=== PATIENT | male | born 1965 | race African-American/Black ===

== ENCOUNTER 2017-11-09 12:33 | Inpatient (IN) | payer OTHER ==
[2017-11-09 17:24] VITALS: BMI 20.4
--- NOTE | 2017-11-09 19:48 | HP ---
CIWA Score - CIWA Score Nausea/Vomitin-No Nausea/No Vomiting Muscle Tremors: 4-Moderate,w/Arms Extend Anxiety: 4-Mod. Anxious/Guarded Agitation: 1-Slight > Activity Paroxysmal Sweats: 3 Orientation: 0-Oriented Tacttile Disturbances: 0-None Auditory Disturbances: 0-None Visual Disturbances: 0-None Headache: 2-Mild CIWA-Ar Total Score: 14 Admission ROS S - HPI Chief Complaint: Alcohol withdrawal symtpoms, " I was clean for a while and I really messed up, I want to go to detox." Allergies/Adverse Reactions: Allergies Allergy/AdvReac Type Severity Reaction Status Date / Time No Known Allergies Allergy Verified 11/09/17 18:19 History of Present Illness: 52 yo male with hx of alcohol dependence, crack / cocaine and nicotine dependence is here seeking detox. PMHX: chronic foot fungus, insomnia. Reports recent onset of blackout related to his drinking, last episode was about a month ago, as per patient his is an indication for him that his drinking has worsen. Denies any seizures Longest period of sobriety 5 years. Last detox [facility] at [facility], April 27, 2017. Denies suicidal / homicidal ideation or suicide attempts. Exam Limitations: Physical Impairment - Ebola screening Have you traveled outside of the country in the last 21 days: No Have you had contact with anyone from an Ebola affected area: No Have you been sick,other than usual withdrawal symptoms: No - Review of Systems Constitutional: Chills, Loss of Appetite, Changes in sleep, Weakness, Unintentional Wgt. Loss (lost 8 lbs in the past three weeks) EENT: reports: No Symptoms Reported Respiratory: reports: No Symptoms reported Cardiac: reports: No Symptoms Reported GI: reports: Nausea, Poor Appetite, Poor Fluid Intake : reports: No Symptoms Reported Musculoskeletal: reports: Other (b/t pain on both feet attributes to chronic fungus infection) Integumentary: reports: No Symptoms Reported Neuro: reports: Headache Endocrine: reports: No Symptoms Reported Hematology: reports: No Symptoms Reported Psychiatric: reports: Orientated x3, Depressed Other Systems: Reviewed and Negative Patient History - Patient Medical History Hx Anemia: No Hx Asthma: No Hx Chronic Obstructive Pulmonary Disease (COPD): No Hx Cancer: No Hx Cardiac Disorders: No Hx Congestive Heart Failure: No Hx Hypertension: No Hx Hypercholesterolemia: No Hx Pacemaker: No HX Cerebrovascular Accident: No Hx Seizures: No Hx Dementia: No Hx Diabetes: No Hx Gastrointestinal Disorders: No Hx Liver Disease: No Hx Genitourinary Disorders: No Hx Sexually Transmitted Disorders: No Hx Renal Disease (ESRD): No Hx Thyroid Disease: No Hx Human Immunodeficiency Virus (HIV): No Hx Hepatitis C: No Hx Depression: Yes Hx Suicide Attempt: No Hx Bipolar Disorder: No Hx Schizophrenia: No - Patient Surgical History Past Surgical History: No Hx Neurologic Surgery: No Hx Cataract Extraction: No Hx Cardiac Surgery: No Hx Lung Surgery: No Hx Breast Surgery: No Hx Breast Biopsy: No Hx Abdominal Surgery: No Hx Appendectomy: No Hx Cholecystectomy: No Hx Genitourinary Surgery: No Hx Section: No Hx Orthopedic Surgery: Yes (fx. right femur Christophe thigh to knee) Anesthesia Reaction: No - PPD History Previous Implant?: Yes Documented Results: Negative w/o proof Implanted On Prior R Admission?: No PPD to be Administered?: Yes - Reproductive History Patient is a Female of Child Bearing Age (11 -55 yrs old): No Patient : No - Smoking Cessation Smoking history: Current every day smoker Have you smoked in the past 12 months: Yes Aproximately how many cigarettes per day: 10 Cigars Per Day: 0 Hx Chewing Tobacco Use: No Initiated information on smoking cessation: Yes 'Breaking Loose' booklet given: 11/09/17 - Substance & Tx. History Hx Alcohol Use: Yes Substance Use Type: Alcohol, Cocaine, Marijuana - Substances Abused Alcohol Route: Oral Frequency: Daily Amount used: 7 beers 120z cobra 3 pints vodka Age of first use: 17 Date of Last Use: 11/09/17 Family Disease History - Family Disease History Family Disease History: Other: Father (, alcoholism, liver cirrhosis ), Mother (alive, HTN ) Admission Physical Exam BHS - Vital Signs Vital Signs: Vital Signs - 24 hr 11/09/17 16:57 Temperature 99.0 F Pulse Rate 85 Respiratory 18 Rate Blood Pressure 126/72 - Physical General Appearance: Yes: Appropriately Dressed, Anxious HEENTM: Yes: EOMI, Hearing grossly Normal, Normal ENT Inspection, Normocephalic , Normal Voice, MARISELA, Pharynx Normal, Tm's normal Respiratory: Yes: Chest Non-Tender, Lungs Clear, Normal Breath Sounds, No Respiratory Distress, No Accessory Muscle Use Neck: Yes: No masses,lesions,Nodules, Trachea in good position Breast: Yes: Breast Exam Deferred Cardiology: Yes: Regular Rhythm, S1, S2, Tachycardia Abdominal: Yes: Normal Bowel Sounds, Non Tender, Flat, Soft Back: Yes: Normal Inspection Musculoskeletal: Yes: full range of Motion, Gait Steady, Pelvis Stable Extremities: Yes: Normal Capillary Refill, Normal Inspection, Normal Range of Motion, Non-Tender 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 NML intact, Fully Oriented, Alert, Motor Strength 5/5, Depressed Affect Integumentary: Yes: Normal Color, Dry, Warm Lymphatic: Yes: Within Normal Limits - Diagnostic (1) Nicotine dependence Current Visit: Yes Status: Chronic Qualifiers: Nicotine product type: cigarettes (2) Cocaine dependence Current Visit: Yes Status: Chronic Qualifiers: Substance use status: uncomplicated Qualified Code(s): F14.20 - Cocaine dependence, uncomplicated (3) Weight loss Current Visit: Yes Status: Acute (4) Alcohol dependence with withdrawal, uncomplicated Current Visit: Yes Status: Acute (5) Insomnia Current Visit: Yes Status: Acute Qualifiers: Insomnia type: unspecified Qualified Code(s): G47.00 - Insomnia, unspecified (6) Tinea pedis Current Visit: Yes Status: Acute Qualifiers: Laterality: bilateral Qualified Code(s): B35.3 - Tinea pedis Cleared for Admission [facility] - Detox or Rehab [facility] Level of Care: Medically Managed Detox Regimen/Protocol: Librium [facility] Breath Alcohol Content Breath Alcohol Content: 0 Urine Drug Screen - Results Drug Screen Negative: No Urine Drug Screen Results: THC-Marijuana, LENA-Cocaine
[2017-11-09] MEDS ORDERED: P-EPHED 60MG/TRIPROLIDI 2.5MG TABLET PO PRN (20:03)
[2017-11-09] MEDS ORDERED: ACETAMINOPHEN 325 MG TABLET (FP) PO PRN (20:03)
[2017-11-09] MEDS ORDERED: MAG HYDROX/AL HYDROX/SIMETH 30 ML UNIT-DOSE CUP PO PRN (20:03)
[2017-11-09] MEDS ORDERED: MAGNESIUM CITRATE 300 ML BOTTLE PO PRN (20:03)
[2017-11-09] MEDS ORDERED: IBUPROFEN 400 MG TABLET (FP) PO PRN (20:03)
[2017-11-09] MEDS ORDERED: hydrOXYzine PAMOATE 50 MG CAPSULE (FP) PO PRN (20:03)
[2017-11-09] MEDS ORDERED: guaiFENesin/D-METHORPHAN HB 10 ML UNIT-DOSE CUPS PO PRN (20:03)
[2017-11-09] MEDS ORDERED: MENTHOL/PHENOL 1 EACH UD MM PRN (20:03)
[2017-11-09] MEDS ORDERED: MAGNESIUM HYDROX 2400MG/30ML ORAL SUSPENSION 30 ML CUP PO PRN (20:03)
[2017-11-09] MEDS ORDERED: LOPERAMIDE HCL 2 MG CAPSULE PO PRN (20:03)
[2017-11-09] MEDS ORDERED: NICOTINE POLACRILEX 2 MG GUM BC PRN (20:03)
[2017-11-09] MEDS ORDERED: chlordiazePOXIDE HCL 25 MG CAPSULE PO ONE (20:03)
[2017-11-09] MEDS ORDERED: cloNIDine HCL 0.1 MG TABLET PO ONE (20:15)
[2017-11-09] MEDS: THIAMINE HCL 100 MG TABLET (FP) PO SCH (22:10)
[2017-11-09] MEDS: chlordiazePOXIDE HCL 25 MG CAPSULE PO SCH (22:10)
[2017-11-09] MEDS: CLOTRIMAZOLE 1% CREAM 15 GM TUBE TP SCH (23:41)
[2017-11-09 23:48] LABS: URINE APPEARANCE CLEAR; URINE BILIRUBIN NEGATIVE (NEGATIVE); URINE BLOOD NEGATIVE (NEGATIVE); URINE COLOR DKYELLOW; URINE GLUCOSE (UA) NEGATIVE (NEGATIVE); URINE KETONE TRACE (NEGATIVE); URINE NITRITE NEGATIVE (NEGATIVE); URINE PROTEIN NEGATIVE (NEGATIVE); URINE UROBILINOGEN 4.0 E.U/dl mg/dL (0.2-1.0)
[2017-11-09 23:50] LABS: URINE LEUK ESTERASE 2+ (NEGATIVE)
[2017-11-09 23:56] LABS: EPI CELLS RARE /HPF (FEW); URINE HYALINE CAST 20 /lpf; URINE MUCUS MANY
[2017-11-10] MEDS: chlordiazePOXIDE HCL 25 MG CAPSULE PO SCH ×4 (06:06→22:20)
[2017-11-10 10:27] LABS: HEMATOCRIT 40.5 % (35.4-49); MCH 25.6 pg (25.7-33.7); MCHC 32.2 g/dl (32.0-35.9); MEAN CELL VOLUME 79.5 fl (80-96); MEAN PLT VOLUME 8.8 fl (7.5-11.1); PLATELET COUNT 164 K/MM3 (134-434); RBC 5.09 M/mm3 (4.00-5.60); RDW 15.6 % (11.9-15.9); WHITE BLOOD COUNT 4.5 K/mm3 (4.0-10.0)
[2017-11-10 10:40] LABS: ALBUMIN 3.1 g/dl (3.4-5.0); ANION GAP 8 (8-16); BLOOD UREA NITROGEN 16 mg/dL (7-18); CALCIUM 8.4 mg/dL (8.5-10.1); CHLORIDE 106 mmol/L (98-107); CO2 28 mmol/L (21-32); CREATININE 1.1 mg/dL (0.7-1.3); GLUCOSE,RANDOM 96 mg/dL (74-106); POTASSIUM 3.7 mmol/L (3.5-5.1); SGOT/AST 22 U/L (15-37); SGPT/ALT 17 U/L (12-78); SODIUM 142 mmol/L (136-145)
[2017-11-10 10:42] LABS: ALK PHOS 85 U/L (45-117); BILIRUBIN,TOTAL 0.7 mg/dL (0.2-1.0); TOT PROT 5.8 g/dl (6.4-8.2)
[2017-11-10] MEDS: PRENATAL VITAMINS W/ FOLIC ACID TABLET (FP) PO SCH (10:48)
[2017-11-10] MEDS: NICOTINE 14 MG/24 HOURS TOPICAL PATCH TD SCH (10:48)
--- NOTE | 2017-11-10 11:37 | CONSULT ---
[facility] Psychiatric Consult - Data Date of interview: 11/10/17 Admission source: [facility] Identifying data: Readmission to [facility] for this 52 y/o AA male seeking detox treatment on for alcohol,cocaine (crack) and cannabis dependence.Patient is ,a father of two,homeless,unemployed and supported on food stamps. Substance Abuse History: Discussed with patient in this session.Mr De Leon admits to daily consumption of vodka (up to 4 pints + 5 X 16 oz of beer) + spends 300 dollars a day (on crack) and intermittent use of marihuana.Years of substance dependence.Last used substances on 11/09/16. Details in current [facility] report as follows : Smoking history: Current every day smoker. Have you smoked in the past 12 months: Yes. Aproximately how many cigarettes per day: 10. Cigars Per Day: 0. Hx Chewing Tobacco Use: No. Initiated information on smoking cessation: Yes. 'Breaking Loose' booklet given: 11/09/17. - Substance & Tx. History. Hx Alcohol Use: Yes. Substance Use Type: Alcohol, Cocaine, Marijuana. - Substances Abused. Alcohol. Route: Oral. Frequency: Daily. Amount used: 7 beers 120z cobra 3 pints vodka. Age of first use: 17. Date of Last Use: 11/09/17 Medical History: Patient endorses good general health.Noted history of orthosurgery for fracture of right femur (rani in situ). Psychiatric History: Patient denies. Physical/Sexual Abuse/Trauma History: No reported history of abuse.Feels hurt by his divorce (after 15 years of marriage). Additional Comment: Urine Drug Screen Results: THC-Marijuana, LENA-Cocaine.Noted. Mental Status Exam - Mental Status Exam Alert and Oriented to: Time, Place, Person Cognitive Function: Good Patient Appearance: Well Groomed Mood: Nervous, Anxious Affect: Mood Congruent Patient Behavior: Fatigued, Appropriate, Cooperative Speech Pattern: Clear, Appropriate Voice Loudness: Normal Thought Process: Intact, Goal Oriented Thought Disorder: Not Present Hallucinations: Denies Suicidal Ideation: Denies Homicidal Ideation: Denies Insight/Judgement: Poor Sleep: Poorly, Difficulty falling asleep Appetite: Good Muscle strength/Tone: Normal Gait/Station: Normal Psychiatric Findings - Problem List ([place] 1, 2,3) (1) Alcohol dependence with withdrawal, uncomplicated Current Visit: Yes Status: Acute (2) Cocaine dependence Current Visit: Yes Status: Acute Qualifiers: Substance use status: uncomplicated Qualified Code(s): F14.20 - Cocaine dependence, uncomplicated (3) Cannabis dependence Current Visit: Yes Status: Acute (4) Nicotine dependence Current Visit: Yes Status: Acute Qualifiers: Nicotine product type: cigarettes (5) Insomnia Current Visit: Yes Status: Acute Qualifiers: Insomnia type: unspecified Qualified Code(s): G47.00 - Insomnia, unspecified - Initial Treatment Plan Initial Treatment Plan: Psychoeducation.Sleep hygiene.Detoxification in progress.Ambien 10 mg po hs prn.Observation.Patient is informed of risk of parasomnias (sleep-walking).Mr De Leon is agreable with this plan of care.
[2017-11-10] MEDS: CLOTRIMAZOLE 1% CREAM 15 GM TUBE TP SCH ×2 (15:37→23:44)
--- NOTE | 2017-11-10 17:52 | PN ---
[facility] CIWA - CIWA Score Nausea/Vomitin-No Nausea/No Vomiting Muscle Tremors: 4-Moderate,w/Arms Extend Anxiety: 3 Agitation: 3 Paroxysmal Sweats: 3 Orientation: 0-Oriented Tacttile Disturbances: 1-Very Mild Itch/Numbness Auditory Disturbances: 2-Mild Harshness/Frighten Visual Disturbances: 0-None Headache: 0-None Present CIWA-Ar Total Score: 16 BHS Progress Note (SOAP) Subjective: Anxious, Tremors, Hot / Cold Sensations, Sweating. Objective: PATIENT A & O X 3, OBSERVED AMBULATING ON UNIT. NO ACUTE DISTRESS. 11/10/17 17:50 Vital Signs Temperature 98.1 F 11/10/17 14:23 Pulse Rate 73 11/10/17 14:23 Respiratory Rate 18 11/10/17 14:23 Blood Pressure 114/68 11/10/17 14:23 O2 Sat by Pulse Oximetry (%) Laboratory Tests 11/09/17 11/10/17 11/10/17 23:40 08:00 08:00 WBC 4.5 RBC 5.09 Hgb 13.0 Hct 40.5 MCV 79.5 L MCH 25.6 L MCHC 32.2 RDW 15.6 Plt Count 164 MPV 8.8 Sodium Potassium Chloride Carbon Dioxide Anion Gap BUN Creatinine Creat Clearance w eGFR Random Glucose Calcium Total Bilirubin AST ALT Alkaline Phosphatase Total Protein Albumin Urine Color Dkyellow Urine Appearance Clear Urine pH 6.0 Ur Specific [place] 1.019 Urine Protein Negative Urine Glucose (UA) Negative Urine Ketones Trace H Urine Blood Negative Urine Nitrite Negative Urine Bilirubin Negative Urine Urobilinogen 4.0 e.u/dl Ur Leukocyte Esterase 2+ H Urine WBC (Auto) 64 Urine RBC (Auto) 1 Ur Epithelial Cells Rare Hyaline Casts 20 Urine Mucus Many RPR Titer HIV 1&2 Antibody Screen Negative HIV P24 Antigen Negative 11/10/17 11/10/17 08:00 08:00 WBC RBC Hgb Hct MCV MCH MCHC RDW Plt Count MPV Sodium 142 Potassium 3.7 Chloride 106 Carbon Dioxide 28 Anion Gap 8 BUN 16 Creatinine 1.1 Creat Clearance w eGFR > 60 Random Glucose 96 Calcium 8.4 L Total Bilirubin 0.7 AST 22 ALT 17 Alkaline Phosphatase 85 Total Protein 5.8 L Albumin 3.1 L Urine Color Urine Appearance Urine pH Ur Specific [place] Urine Protein Urine Glucose (UA) Urine Ketones Urine Blood Urine Nitrite Urine Bilirubin Urine Urobilinogen Ur Leukocyte Esterase Urine WBC (Auto) Urine RBC (Auto) Ur Epithelial Cells Hyaline Casts Urine Mucus RPR Titer Nonreactive HIV 1&2 Antibody Screen HIV P24 Antigen LABS NOTED. Assessment: 11/10/17 17:50 WITHDRAWAL SYMPTOMS. Plan: CONTINUE DETOX. REPEAT UA WITH URINE C + S FOR ADMISSION UA ABNORMALITIES. INCREASE DAILY PO FLUID INTAKE.
[2017-11-10] MEDS: ZOLPIDEM TARTRATE 10 MG TABLET (PARK CARE ONLY) PO PRN (22:20)
[2017-11-10] MEDS: THIAMINE HCL 100 MG TABLET (FP) PO SCH (22:20)
[2017-11-11] MEDS: chlordiazePOXIDE HCL 25 MG CAPSULE PO SCH ×3 (06:43→17:48)
[2017-11-11 10:06] LABS: URINE APPEARANCE CLEAR; URINE BILIRUBIN NEGATIVE (NEGATIVE); URINE BLOOD NEGATIVE (NEGATIVE); URINE COLOR YELLOW; URINE GLUCOSE (UA) NEGATIVE (NEGATIVE); URINE KETONE NEGATIVE (NEGATIVE); URINE LEUK ESTERASE TRACE (NEGATIVE); URINE NITRITE NEGATIVE (NEGATIVE); URINE PROTEIN NEGATIVE (NEGATIVE)
[2017-11-11 10:11] LABS: CALCIUM OXALATE CRYSTALS MODERATE /hpf (NONE SEEN); EPI CELLS RARE /HPF (FEW); URINE MUCUS FEW
[2017-11-11] MEDS: CLOTRIMAZOLE 1% CREAM 15 GM TUBE TP SCH ×2 (10:35→22:14)
[2017-11-11] MEDS: PRENATAL VITAMINS W/ FOLIC ACID TABLET (FP) PO SCH (10:35)
[2017-11-11] MEDS: NICOTINE 14 MG/24 HOURS TOPICAL PATCH TD SCH (10:35)
[2017-11-11] MEDS: chlordiazePOXIDE HCL 25 MG CAPSULE PO PRN (12:09)
--- NOTE | 2017-11-11 16:07 | PN ---
S CIWA - CIWA Score Nausea/Vomitin Muscle Tremors: 4-Moderate,w/Arms Extend Anxiety: 3 Agitation: 3 Paroxysmal Sweats: 3 Orientation: 0-Oriented Tacttile Disturbances: 1-Very Mild Itch/Numbness Auditory Disturbances: 0-None Visual Disturbances: 0-None Headache: 0-None Present CIWA-Ar Total Score: 17 BHS Progress Note (SOAP) Subjective: Tremor, sweating, chills Objective: 11/11/17 16:06 Last Vital Signs Temp Pulse Resp BP Pulse Ox 98.1 F 71 18 130/79 11/11/17 14:20 11/11/17 14:20 11/11/17 14:20 11/11/17 14:20 Laboratory Tests 11/09/17 11/10/17 11/10/17 23:40 08:00 08:00 WBC 4.5 RBC 5.09 Hgb 13.0 Hct 40.5 MCV 79.5 L MCH 25.6 L MCHC 32.2 RDW 15.6 Plt Count 164 MPV 8.8 Sodium Potassium Chloride Carbon Dioxide Anion Gap BUN Creatinine Creat Clearance w eGFR Random Glucose Calcium Total Bilirubin AST ALT Alkaline Phosphatase Total Protein Albumin Urine Color Dkyellow Urine Appearance Clear Urine pH 6.0 Ur Specific [place] 1.019 Urine Protein Negative Urine Glucose (UA) Negative Urine Ketones Trace H Urine Blood Negative Urine Nitrite Negative Urine Bilirubin Negative Urine Urobilinogen 4.0 e.u/dl Ur Leukocyte Esterase 2+ H Urine WBC (Auto) 64 Urine RBC (Auto) 1 Ur Epithelial Cells Rare Calcium Oxalate Crystal Hyaline Casts 20 Urine Mucus Many RPR Titer HIV 1&2 Antibody Screen Negative HIV P24 Antigen Negative 11/10/17 11/10/17 11/11/17 08:00 08:00 07:20 WBC RBC Hgb Hct MCV MCH MCHC RDW Plt Count MPV Sodium 142 Potassium 3.7 Chloride 106 Carbon Dioxide 28 Anion Gap 8 BUN 16 Creatinine 1.1 Creat Clearance w eGFR > 60 Random Glucose 96 Calcium 8.4 L Total Bilirubin 0.7 AST 22 ALT 17 Alkaline Phosphatase 85 Total Protein 5.8 L Albumin 3.1 L Urine Color Yellow Urine Appearance Clear Urine pH 5.0 Ur Specific [place] 1.026 Urine Protein Negative Urine Glucose (UA) Negative Urine Ketones Negative Urine Blood Negative Urine Nitrite Negative Urine Bilirubin Negative Urine Urobilinogen 2.0 Ur Leukocyte Esterase Trace Urine WBC (Auto) 26 Urine RBC (Auto) 2 Ur Epithelial Cells Rare Calcium Oxalate Crystal Moderate Hyaline Casts Urine Mucus Few RPR Titer Nonreactive HIV 1&2 Antibody Screen HIV P24 Antigen Labs noted Assessment: 11/11/17 16:06 Withdrawal symptoms Plan: Continue detox Encouraged to drink lots of water
--- NOTE | 2017-11-11 20:37 | EKG ---
Test Reason : Blood Pressure : / mmHG Vent. Rate : 070 BPM Atrial Rate : 070 BPM P-R Int : 136 ms QRS Dur : 080 ms QT Int : 410 ms P-R-T Axes : 077 058 075 degrees QTc Int : 442 ms NORMAL SINUS RHYTHM POSSIBLE LEFT ATRIAL ENLARGEMENT BORDERLINE ECG NO PREVIOUS ECGS AVAILABLE Confirmed by ELEAZAR COOK, YUMIKO ([id number]) on 11/11/2017 8:37:02 PM Referred By: Confirmed By:YUMIKO BUSH MD
[2017-11-11] MEDS: THIAMINE HCL 100 MG TABLET (FP) PO SCH (22:14)
[2017-11-11] MEDS: chlordiazePOXIDE 5 MG CAPSULE PO SCH (22:14)
[2017-11-11] MEDS: ZOLPIDEM TARTRATE 10 MG TABLET (PARK CARE ONLY) PO PRN (22:15)
[2017-11-12] MEDS: chlordiazePOXIDE HCL 25 MG CAPSULE PO PRN (03:50)
[2017-11-12] MEDS: chlordiazePOXIDE 5 MG CAPSULE PO SCH ×3 (05:50→17:37)
[2017-11-12] MEDS: CLOTRIMAZOLE 1% CREAM 15 GM TUBE TP SCH ×2 (10:35→22:22)
[2017-11-12] MEDS: NICOTINE 14 MG/24 HOURS TOPICAL PATCH TD SCH (10:35)
[2017-11-12] MEDS: PRENATAL VITAMINS W/ FOLIC ACID TABLET (FP) PO SCH (10:35)
--- NOTE | 2017-11-12 11:40 | PN ---
BHS Progress Note (SOAP) Subjective: TREMORS,SWEATS, ANXIETY,INTERMITTENT SLEEP. Objective: 11/12/17 11:38 Vital Signs Temperature 97.1 F L 11/12/17 10:14 Pulse Rate 90 11/12/17 10:14 Respiratory Rate 18 11/12/17 10:14 Blood Pressure 150/98 11/12/17 10:14 O2 Sat by Pulse Oximetry (%) Laboratory Tests 11/09/17 11/10/17 11/10/17 23:40 08:00 08:00 WBC 4.5 RBC 5.09 Hgb 13.0 Hct 40.5 MCV 79.5 L MCH 25.6 L MCHC 32.2 RDW 15.6 Plt Count 164 MPV 8.8 Sodium Potassium Chloride Carbon Dioxide Anion Gap BUN Creatinine Creat Clearance w eGFR Random Glucose Calcium Total Bilirubin AST ALT Alkaline Phosphatase Total Protein Albumin Urine Color Dkyellow Urine Appearance Clear Urine pH 6.0 Ur Specific [place] 1.019 Urine Protein Negative Urine Glucose (UA) Negative Urine Ketones Trace H Urine Blood Negative Urine Nitrite Negative Urine Bilirubin Negative Urine Urobilinogen 4.0 e.u/dl Ur Leukocyte Esterase 2+ H Urine WBC (Auto) 64 Urine RBC (Auto) 1 Ur Epithelial Cells Rare Calcium Oxalate Crystal Hyaline Casts 20 Urine Mucus Many RPR Titer HIV 1&2 Antibody Screen Negative HIV P24 Antigen Negative 11/10/17 11/10/17 11/11/17 08:00 08:00 07:20 WBC RBC Hgb Hct MCV MCH MCHC RDW Plt Count MPV Sodium 142 Potassium 3.7 Chloride 106 Carbon Dioxide 28 Anion Gap 8 BUN 16 Creatinine 1.1 Creat Clearance w eGFR > 60 Random Glucose 96 Calcium 8.4 L Total Bilirubin 0.7 AST 22 ALT 17 Alkaline Phosphatase 85 Total Protein 5.8 L Albumin 3.1 L Urine Color Yellow Urine Appearance Clear Urine pH 5.0 Ur Specific [place] 1.026 Urine Protein Negative Urine Glucose (UA) Negative Urine Ketones Negative Urine Blood Negative Urine Nitrite Negative Urine Bilirubin Negative Urine Urobilinogen 2.0 Ur Leukocyte Esterase Trace Urine WBC (Auto) 26 Urine RBC (Auto) 2 Ur Epithelial Cells Rare Calcium Oxalate Crystal Moderate Hyaline Casts Urine Mucus Few RPR Titer Nonreactive HIV 1&2 Antibody Screen HIV P24 Antigen Assessment: 11/12/17 11:39 WITHDRAWAL SX Plan: CONTINUE DETOX INCREASE PO FLUIDS.
[2017-11-12] MEDS ORDERED: cloNIDine HCL 0.1 MG TABLET PO ONE (18:29)
[2017-11-12] MEDS: ZOLPIDEM TARTRATE 10 MG TABLET (PARK CARE ONLY) PO PRN (22:21)
[2017-11-12] MEDS: THIAMINE HCL 100 MG TABLET (FP) PO SCH (22:21)
[2017-11-12] MEDS: chlordiazePOXIDE HCL 10 MG CAPSULE PO SCH (22:21)
[2017-11-13] MEDS: chlordiazePOXIDE HCL 10 MG CAPSULE PO SCH (05:43)
[2017-11-13 06:18] VITALS: BP 122/72; PULSE 69; TEMP 97.1
[2017-11-13] MEDS: PRENATAL VITAMINS W/ FOLIC ACID TABLET (FP) PO SCH (09:13)
--- NOTE | 2017-11-13 12:51 | DS ---
[facility] Detox Discharge Summary Admission Date: 11/09/17 Discharge Date: 11/13/17 - History Present History: Alcohol Dependence, Cannabis Dependence, Cocaine Dependence Additional Comments: DETOX COMPLETED. ALERT O X 3. NAD. PT STATES GOING FOR AFTERCARE AT [facility]. INSTRUCTED PT TO F/U WITH MEDICAL CARE NEEDED AT [facility]. Pertinent Past History: SEE DX BELOW - Physical Exam Results Vital Signs: Vital Signs Temperature 97.1 F L 11/13/17 06:18 Pulse Rate 69 11/13/17 06:18 Respiratory Rate 18 11/13/17 06:18 Blood Pressure 122/72 11/13/17 06:18 O2 Sat by Pulse Oximetry (%) Pertinent Admission Physical Exam Findings: WITHDRAWAL SX Laboratory Last Values WBC 4.5 K/mm3 (4.0-10.0) 11/10/17 08:00 RBC 5.09 M/mm3 (4.00-5.60) 11/10/17 08:00 Hgb 13.0 GM/dL (11.7-16.9) 11/10/17 08:00 Hct 40.5 % (35.4-49) 11/10/17 08:00 MCV 79.5 fl (80-96) L 11/10/17 08:00 MCH 25.6 pg (25.7-33.7) L 11/10/17 08:00 MCHC 32.2 g/dl (32.0-35.9) 11/10/17 08:00 RDW 15.6 % (11.9-15.9) 11/10/17 08:00 Plt Count 164 K/MM3 (134-434) 11/10/17 08:00 MPV 8.8 fl (7.5-11.1) 11/10/17 08:00 Sodium 142 mmol/L (136-145) 11/10/17 08:00 Potassium 3.7 mmol/L (3.5-5.1) 11/10/17 08:00 Chloride 106 mmol/L (98-107) 11/10/17 08:00 Carbon Dioxide 28 mmol/L (21-32) 11/10/17 08:00 Anion Gap 8 (8-16) 11/10/17 08:00 BUN 16 mg/dL (7-18) 11/10/17 08:00 Creatinine 1.1 mg/dL (0.7-1.3) 11/10/17 08:00 Creat Clearance w eGFR > 60 (>60) 11/10/17 08:00 Random Glucose 96 mg/dL (74-106) 11/10/17 08:00 Calcium 8.4 mg/dL (8.5-10.1) L 11/10/17 08:00 Total Bilirubin 0.7 mg/dL (0.2-1.0) 11/10/17 08:00 AST 22 U/L (15-37) 11/10/17 08:00 ALT 17 U/L (12-78) 11/10/17 08:00 Alkaline Phosphatase 85 U/L (45-117) 11/10/17 08:00 Total Protein 5.8 g/dl (6.4-8.2) L 11/10/17 08:00 Albumin 3.1 g/dl (3.4-5.0) L 11/10/17 08:00 Urine Color Yellow 11/11/17 07:20 Urine Appearance Clear 11/11/17 07:20 Urine pH 5.0 (5.0-8.0) 11/11/17 07:20 Ur Specific [place] 1.026 (1.001-1.035) 11/11/17 07:20 Urine Protein Negative (NEGATIVE) 11/11/17 07:20 Urine Glucose (UA) Negative (NEGATIVE) 11/11/17 07:20 Urine Ketones Negative (NEGATIVE) 11/11/17 07:20 Urine Blood Negative (NEGATIVE) 11/11/17 07:20 Urine Nitrite Negative (NEGATIVE) 11/11/17 07:20 Urine Bilirubin Negative (NEGATIVE) 11/11/17 07:20 Urine Urobilinogen 2.0 mg/dL (0.2-1.0) 11/11/17 07:20 Ur Leukocyte Esterase Trace (NEGATIVE) 11/11/17 07:20 Urine WBC (Auto) 26 /hpf (3-5) 11/11/17 07:20 Urine RBC (Auto) 2 /hpf (0-3) 11/11/17 07:20 Ur Epithelial Cells Rare /HPF (FEW) 11/11/17 07:20 Calcium Oxalate Crystal Moderate /hpf (NONE SEEN) 11/11/17 07:20 Hyaline Casts 20 /lpf 11/09/17 23:40 Urine Mucus Few 11/11/17 07:20 RPR Titer Nonreactive (NONREACTIVE) 11/10/17 08:00 HIV 1&2 Antibody Screen Negative 11/10/17 08:00 HIV P24 Antigen Negative 11/10/17 08:00 UA IMPPROVED. Microbiology 11/11/17 07:20 Urine - Urine Clean Catch Urine Culture - Final Lactobacillus Species POSSIBLE CONTAMINANTS COPY OF LAB RESULT GIVEN TO PATIENT. - Treatment Hospital Course: Detox Protocol Followed, Detoxed Safely, Responded well, Discharged Condition Good - Medication Discharge Medications: Ambulatory Orders NK [No Known Home Medication] 11/09/17 - Diagnosis (1) Alcohol dependence with withdrawal, uncomplicated Status: Acute (2) Cannabis dependence Status: Acute (3) Tinea pedis Status: Acute Qualifiers: Laterality: bilateral Qualified Code(s): B35.3 - Tinea pedis (4) Weight loss Status: Acute (5) Nicotine dependence Status: Chronic Qualifiers: Nicotine product type: cigarettes Substance use status: uncomplicated Qualified Code(s): F17.210 - Nicotine dependence, cigarettes, uncomplicated (6) Cocaine dependence Status: Acute Qualifiers: Substance use status: uncomplicated Qualified Code(s): F14.20 - Cocaine dependence, uncomplicated - AMA Did Patient Leave Against Medical Advice: No
--- NOTE | 2017-11-13 14:06 | PN ---
S Progress Note (SOAP) Subjective: DETOX COMPLETED. ALERT O X 3. Objective: 11/13/17 14:04 Vital Signs Temperature 97.1 F L 11/13/17 06:18 Pulse Rate 69 11/13/17 06:18 Respiratory Rate 18 11/13/17 06:18 Blood Pressure 122/72 11/13/17 06:18 O2 Sat by Pulse Oximetry (%) Laboratory Last Values WBC 4.5 K/mm3 (4.0-10.0) 11/10/17 08:00 RBC 5.09 M/mm3 (4.00-5.60) 11/10/17 08:00 Hgb 13.0 GM/dL (11.7-16.9) 11/10/17 08:00 Hct 40.5 % (35.4-49) 11/10/17 08:00 MCV 79.5 fl (80-96) L 11/10/17 08:00 MCH 25.6 pg (25.7-33.7) L 11/10/17 08:00 MCHC 32.2 g/dl (32.0-35.9) 11/10/17 08:00 RDW 15.6 % (11.9-15.9) 11/10/17 08:00 Plt Count 164 K/MM3 (134-434) 11/10/17 08:00 MPV 8.8 fl (7.5-11.1) 11/10/17 08:00 Sodium 142 mmol/L (136-145) 11/10/17 08:00 Potassium 3.7 mmol/L (3.5-5.1) 11/10/17 08:00 Chloride 106 mmol/L (98-107) 11/10/17 08:00 Carbon Dioxide 28 mmol/L (21-32) 11/10/17 08:00 Anion Gap 8 (8-16) 11/10/17 08:00 BUN 16 mg/dL (7-18) 11/10/17 08:00 Creatinine 1.1 mg/dL (0.7-1.3) 11/10/17 08:00 Creat Clearance w eGFR > 60 (>60) 11/10/17 08:00 Random Glucose 96 mg/dL (74-106) 11/10/17 08:00 Calcium 8.4 mg/dL (8.5-10.1) L 11/10/17 08:00 Total Bilirubin 0.7 mg/dL (0.2-1.0) 11/10/17 08:00 AST 22 U/L (15-37) 11/10/17 08:00 ALT 17 U/L (12-78) 11/10/17 08:00 Alkaline Phosphatase 85 U/L (45-117) 11/10/17 08:00 Total Protein 5.8 g/dl (6.4-8.2) L 11/10/17 08:00 Albumin 3.1 g/dl (3.4-5.0) L 11/10/17 08:00 Urine Color Yellow 11/11/17 07:20 Urine Appearance Clear 11/11/17 07:20 Urine pH 5.0 (5.0-8.0) 11/11/17 07:20 Ur Specific [place] 1.026 (1.001-1.035) 11/11/17 07:20 Urine Protein Negative (NEGATIVE) 11/11/17 07:20 Urine Glucose (UA) Negative (NEGATIVE) 11/11/17 07:20 Urine Ketones Negative (NEGATIVE) 11/11/17 07:20 Urine Blood Negative (NEGATIVE) 11/11/17 07:20 Urine Nitrite Negative (NEGATIVE) 11/11/17 07:20 Urine Bilirubin Negative (NEGATIVE) 11/11/17 07:20 Urine Urobilinogen 2.0 mg/dL (0.2-1.0) 11/11/17 07:20 Ur Leukocyte Esterase Trace (NEGATIVE) 11/11/17 07:20 Urine WBC (Auto) 26 /hpf (3-5) 11/11/17 07:20 Urine RBC (Auto) 2 /hpf (0-3) 11/11/17 07:20 Ur Epithelial Cells Rare /HPF (FEW) 11/11/17 07:20 Calcium Oxalate Crystal Moderate /hpf (NONE SEEN) 11/11/17 07:20 Hyaline Casts 20 /lpf 11/09/17 23:40 Urine Mucus Few 11/11/17 07:20 RPR Titer Nonreactive (NONREACTIVE) 11/10/17 08:00 HIV 1&2 Antibody Screen Negative 11/10/17 08:00 HIV P24 Antigen Negative 11/10/17 08:00 Microbiology 11/11/17 07:20 Urine - Urine Clean Catch Urine Culture - Final Lactobacillus Species POSSIBLE CONTAMINANTS. ASSYMPTOMATIC LAB RESULT DISCUSSED WITH PATIENT. COPY GIVEN TO PATIENT. Assessment: 11/13/17 14:06 NAD Plan: D/C PT TODAY
== END 2017-11-13 09:15 | disposition home or self-care (01) | DRG 897 ==
LOC: YASAS 12:33 → Y6N 19:17 → Y3N 11-10 03:00
PROVIDERS: ADMIT Internal Medicine; ATTEND Internal Medicine
PROC: HZ2ZZZZ Detoxification Services for Substance Abuse Treatment (ICD-10-PCS; principal; 2017-11-09)
DX: F10.230 Alcohol dependence with withdrawal, uncomplicated (principal); F14.20 Cocaine dependence, uncomplicated; F12.20 Cannabis dependence, uncomplicated; F17.210 Nicotine dependence, cigarettes, uncomplicated; B35.3 Tinea pedis; G47.00 Insomnia, unspecified; R00.0 Tachycardia, unspecified; Z87.898 Personal history of other specified conditions
CPT/HCPCS: 36415; 80053; 81003; 81015; 85027; 86593; 87086; 87389; 93005; 93010; J0735